=== PATIENT | male | born 1985 | race Caucasian/White ===

== ENCOUNTER → 2016-09-09 | Outpatient (CLI) | payer MEDICARE, OTHER, MEDICAID ==
[~2016-09-09] MED LIST: ALPRAZOLAM; AMBIEN 10MG10 MG PO; AMBIEN 5MG TABLE5 MG PO; AMBIEN10 MG PO; ATIVAN; BENADRYL25 M2 PO; BUSPAR10 MG PO; CELEXA; CELEXA 20MG20 MG/TAB PO; COGENTIN .0.5 MG/TAB PO; DESYREL 50MG50 MG PO; FLEXERIL 1010 MG/TAB PO; KLONOPIN0.5 MG PO; KLONOPIN1 MG PO; LATUDA40 MG PO; LATUDA80 MG PO; NIGHTTIME SLEEP25 M1 PO; NO HOME MEDICATIONS; NORCO 325 MG-51 TAB PO; REMERON30 MG PO; SERTRALINE; VOLTAREN 75 DR75 MG PO; ZIPRASIDONE; [UNRECOGNIZED DRUG - CODE]
== END ==
LOC: BHSO 12:56
DX: F25.0 Schizoaffective disorder, bipolar type (principal)

== ENCOUNTER 2016-10-02 10:33 | Emergency (ER) | payer MEDICARE, MEDICAID ==
[~2016-10-02] VITALS: Ht 185.4 cm; Wt 90.9 kg
[~2016-10-02 10:33] MED LIST changes: -AMBIEN 5MG TABLE5 MG PO; -CELEXA 20MG20 MG/TAB PO; -COGENTIN .0.5 MG/TAB PO; -FLEXERIL 1010 MG/TAB PO; -VOLTAREN 75 DR75 MG PO
[2016-10-02 10:40] VITALS: TEMP 97.6
[2016-10-02] MEDS ORDERED: CELEXA 20MG20 MG/TAB PO (10:45)
[2016-10-02] MEDS ORDERED: COGENTIN .0.5 MG/TAB PO (10:45)
[2016-10-02] MEDS ORDERED: AMBIEN 5MG TABLE5 MG PO (10:52)
[2016-10-02 11:37] LABS: BASO % 0.3 % (0.0-2.0); EOS % 0.4 % (0-4.0); GRAN # 7.5 (1.4-6.5); GRAN % 69.1 % (42.2-75.2); HEMOGLOBIN 15.1 g/dl (13.5-18.0); LYMPH # 2.1 (1.2-3.4); MEAN CELL VOLUME 91 fl (80.0-100.0); MEAN CORPUSCULAR HEMOGLOBIN 31 pg (27.0-31.0); MEAN CORPUSCULAR HGB CONC 34 g/dl (33.0-37.0); MONO # 1.2 (0.1-0.6); MONO % 10.8 % (1.7-9.3); PLATELET COUNT 411 K/mm3 (130-400); RED BLOOD COUNT 4.95 M/mm3 (4.20-5.60); REDCELL DISTRIBUTION WIDTH-CV 12.8 % (11.5-14.5); WHITE BLOOD COUNT 10.8 K/mm3 (4.8-10.8)
[2016-10-02 11:50] LABS: ADJUSTED CALCIUM 9.3 mg/dL (8.4-10.2); ALANINE AMINOTRANSFERASE 30 U/L (21-72); ALBUMIN 4.8 gm/dL (3.5-5.0); ALKALINE PHOSPHATASE 73 U/L (50-136); ANION GAP 13 mmol/L (7-16); BILIRUBIN,TOTAL 0.9 mg/dL (0.0-1.0); BLOOD UREA NITROGEN 14 mg/dL (9-20); CALCIUM 9.9 mg/dL (8.4-10.2); CARBON DIOXIDE 25 mmol/L (22-30); CHLORIDE 98 mmol/L (98-107); CREATININE, serum 0.85 mg/dL (0.66-1.25); GLUCOSE 100 mg/dL (74-106); POTASSIUM 4.3 mmol/L (3.4-5.0); SODIUM 135 mmol/L (137-145); TOTAL PROTEIN 8.3 gm/dL (6.4-8.2)
[2016-10-02 11:56] LABS: ACETAMINOPHEN < 10 ug/mL (10-30); SALICYLATE < 1.0 mg/dL
[2016-10-02 12:08] LABS: AMPHETAMINE URINE NEGATIVE; BARBITURATES URINE NEGATIVE; BENZODIAZEPINES URINE NEGATIVE; BUPRENORPHINE URINE NEGATIVE; METHADONE URINE NEGATIVE; OPIATES URINE NEGATIVE; OXYCODONE URINE NEGATIVE; PHENCYCLIDINE URINE NEGATIVE; PROPOXYPHENE URINE NEGATIVE; THC CANNABINOIDS URINE NEGATIVE
[2016-10-02 15:22] VITALS: BP 116/82; PULSE 82
== END 2016-10-02 15:23 | disposition home or self-care (01) ==
LOC: COL.ER 10:33
PROVIDERS: Nurse Practitioner
DX: T42.6X1A Poisoning by other antiepileptic and sedative-hypnotic drugs, accidental (unintentional), initial encounter (principal); Y92.009 Unspecified place in unspecified non-institutional (private) residence as the place of occurrence of the external cause; F25.9 Schizoaffective disorder, unspecified; F41.1 Generalized anxiety disorder; F90.9 Attention-deficit hyperactivity disorder, unspecified type

== ENCOUNTER → 2016-11-11 | Outpatient (CLI) | payer MEDICARE, MEDICAID ==
[~2016-11-11] MED LIST changes: +AMBIEN 5MG TABLE5 MG PO; +CELEXA 20MG20 MG/TAB PO; +COGENTIN .0.5 MG/TAB PO; +FLEXERIL 1010 MG/TAB PO; +VOLTAREN 75 DR75 MG PO
== END ==
LOC: BHSO 12:48
DX: F25.0 Schizoaffective disorder, bipolar type (principal)

== ENCOUNTER → 2017-01-06 | Outpatient (CLI) | payer MEDICARE, MEDICAID | LOC: BHSO 13:12 | DX: F25.0 Schizoaffective disorder, bipolar type (principal) ==

== ENCOUNTER 2017-02-15 08:33 | Emergency (ER) | payer MEDICARE, MEDICAID ==
[~2017-02-15] VITALS: Ht 185.4 cm; Wt 90.9 kg
[~2017-02-15 08:33] MED LIST changes: -FLEXERIL 1010 MG/TAB PO; -VOLTAREN 75 DR75 MG PO
[2017-02-15 08:35] VITALS: TEMP 98.6
[2017-02-15] MEDS ORDERED: FLEXERIL 1010 MG/TAB PO (08:59)
[2017-02-15] MEDS ORDERED: VOLTAREN 75 DR75 MG PO (08:59)
[2017-02-15 09:20] VITALS: BP 130/93; PULSE 76
== END 2017-02-15 09:25 | disposition home or self-care (01) ==
LOC: COL.ER 08:33
DX: S39.012A Strain of muscle, fascia and tendon of lower back, initial encounter (principal); X50.0XXA Overexertion from strenuous movement or load, initial encounter
CPT/HCPCS: J1885

== ENCOUNTER → 2017-03-10 | Outpatient (CLI) | payer MEDICARE, OTHER, MEDICAID ==
[~2017-03-10] MED LIST changes: +FLEXERIL 1010 MG/TAB PO; +VOLTAREN 75 DR75 MG PO
== END ==
LOC: BHSO 13:10
DX: F25.0 Schizoaffective disorder, bipolar type (principal)

== ENCOUNTER → 2017-07-03 | Outpatient (CLI) | payer MEDICARE, MEDICAID | LOC: BHSO 14:50 | DX: F25.0 Schizoaffective disorder, bipolar type (principal) ==

== ENCOUNTER 2017-10-18 15:58 | Emergency (ER) | payer MEDICARE ==
[~2017-10-18] VITALS: Ht 190.5 cm; Wt 118.2 kg
[2017-10-18 16:31] LABS: BASO # 0.1 (0.0-0.2); BASO % 0.6 % (0.0-2.0); EOS # 0.3 (0.0-0.7); EOS % 2.5 % (0-4.0); GRAN # 6.3 (1.4-6.5); GRAN % 56.4 % (42.2-75.2); HEMATOCRIT 45.2 % (42.0-52.0); HEMOGLOBIN 15.1 g/dl (13.5-18.0); LYMPH # 3.1 (1.2-3.4); LYMPH % 27.7 % (20.0-51.0); MEAN CELL VOLUME 91 fl (80.0-100.0); MEAN CORPUSCULAR HEMOGLOBIN 30 pg (27.0-31.0); MEAN CORPUSCULAR HGB CONC 33 g/dl (33.0-37.0); MEAN PLATELET VOLUME 9.1 fl (7.4-10.4); MONO # 1.4 (0.1-0.6); MONO % 12.3 % (1.7-9.3); PLATELET COUNT 504 K/mm3 (130-400); RED BLOOD COUNT 4.98 M/mm3 (4.20-5.60); REDCELL DISTRIBUTION WIDTH-CV 14.1 % (11.5-14.5)
[2017-10-18 16:40] LABS: ALANINE AMINOTRANSFERASE 44 U/L (21-72); ALBUMIN 4.5 gm/dL (3.5-5.0); ALKALINE PHOSPHATASE 94 U/L (50-136); ANION GAP 12 mmol/L (7-16); AST,SGOT 32 U/L (15-37); BILIRUBIN,TOTAL 0.4 mg/dL (0.0-1.0); BLOOD UREA NITROGEN 12 mg/dL (9-20); CALCIUM 9.6 mg/dL (8.4-10.2); CARBON DIOXIDE 26 mmol/L (22-30); CHLORIDE 103 mmol/L (98-107); CREATININE, serum 0.88 mg/dL (0.66-1.25); GLUCOSE 107 mg/dL (74-106); POTASSIUM 3.8 mmol/L (3.4-5.0); SODIUM 141 mmol/L (137-145); TOTAL PROTEIN 7.8 gm/dL (6.4-8.2)
[2017-10-18 16:41] LABS: ALCOHOL(ethanol),MEDICAL < 10 mg/dL
[2017-10-18 16:57] LABS: COLLECTION METHOD CLEAN CATCH
[2017-10-18 17:04] LABS: MUCOUS Present /lpf; PH 6 (5-8); SQUAMOUS EPITHELIAL None Seen /hpf; URINE APPEARANCE Clear; URINE BACTERIA None Seen /hpf; URINE BILIRUBIN Negative (NEGATIVE); URINE BLOOD Negative (NEGATIVE); URINE COLOR Yellow; URINE GLUCOSE Negative (NEGATIVE); URINE KETONE Negative (NEGATIVE); URINE LEUKOCYTE ESTERASE Negative (NEGATIVE); URINE NITRATE Negative (NEGATIVE); URINE PROTEIN(semi-quant) Negative (NEGATIVE); URINE RBC 0-2 /hpf; URINE UROBILINOGEN Negative (NEGATIVE)
[2017-10-18 17:13] LABS: TRICYCLIC ANTIDEPRESS URINE NEGATIVE
[2017-10-19 08:30] VITALS: BP 94/67; PULSE 90; TEMP 98.2
== END 2017-10-19 14:05 ==
LOC: COL.ER 15:58
PROVIDERS: Family Medicine
DX: F29 Unspecified psychosis not due to a substance or known physiological condition (principal); F31.9 Bipolar disorder, unspecified

== ENCOUNTER → 2017-11-06 | Outpatient (CLI) | payer MEDICARE | LOC: BHSO 12:59 | DX: F25.0 Schizoaffective disorder, bipolar type (principal) | CPT/HCPCS: G0463 ==

== ENCOUNTER → 2017-12-09 | Outpatient (CLI) | payer MEDICARE | LOC: BHSO 14:42 | DX: F25.0 Schizoaffective disorder, bipolar type (principal) | CPT/HCPCS: G0463 ==

== ENCOUNTER → 2018-03-09 | Outpatient (CLI) | payer MEDICARE | LOC: BHSO 14:36 | DX: F25.0 Schizoaffective disorder, bipolar type (principal) | CPT/HCPCS: G0463 ==

== ENCOUNTER 2018-04-01 16:41 | Emergency (ER) | payer OTHER, MEDICARE, MEDICAID ==
[~2018-04-01] VITALS: Ht 190.5 cm; Wt 90.9 kg
[2018-04-01 16:46] VITALS: BP 140/70; TEMP 99.7
[2018-04-01] MEDS ORDERED: BRINTELLIX10 (16:56)
[2018-04-01 17:31] LABS: COLLECTION METHOD CLEAN CATCH
[2018-04-01 17:35] LABS: BASO # 0.1 (0.0-0.2); BASO % 0.3 % (0.0-2.0); EOS # 0.2 (0.0-0.7); EOS % 1.4 % (0-4.0); GRAN % 71.6 % (42.2-75.2); HEMATOCRIT 44.7 % (42.0-52.0); HEMOGLOBIN 14.8 g/dl (13.5-18.0); LYMPH # 2.3 (1.2-3.4); LYMPH % 14.9 % (20.0-51.0); MEAN CELL VOLUME 91 fl (80.0-100.0); MEAN CORPUSCULAR HEMOGLOBIN 30 pg (27.0-31.0); MEAN CORPUSCULAR HGB CONC 33 g/dl (33.0-37.0); MEAN PLATELET VOLUME 9.1 fl (7.4-10.4); MONO # 1.7 (0.1-0.6); PLATELET COUNT 485 K/mm3 (130-400); RED BLOOD COUNT 4.92 M/mm3 (4.20-5.60); REDCELL DISTRIBUTION WIDTH-CV 15.8 % (11.5-14.5)
[2018-04-01 17:39] LABS: MUCOUS Present /lpf; PH 5 (5-8); SQUAMOUS EPITHELIAL None Seen /hpf; URINE APPEARANCE Clear; URINE BACTERIA None Seen /hpf; URINE BILIRUBIN Negative (NEGATIVE); URINE BLOOD Negative (NEGATIVE); URINE COLOR Yellow; URINE GLUCOSE Negative (NEGATIVE); URINE KETONE Negative (NEGATIVE); URINE LEUKOCYTE ESTERASE Negative (NEGATIVE); URINE NITRATE Negative (NEGATIVE); URINE PROTEIN(semi-quant) Negative (NEGATIVE); URINE RBC 0-2 /hpf; URINE UROBILINOGEN Negative (NEGATIVE)
[2018-04-01 17:44] LABS: ALBUMIN 4.1 gm/dL (3.5-5.0); BILIRUBIN,TOTAL 0.4 mg/dL (0.0-1.0); CALCIUM 8.9 mg/dL (8.4-10.2); CREATININE, serum 0.72 mg/dL (0.66-1.25); POTASSIUM 4.1 mmol/L (3.4-5.0); TOTAL PROTEIN 7.2 gm/dL (6.4-8.2)
[2018-04-01] MEDS ORDERED: NORCO 325 MG-51 TAB PO (18:35)
[2018-04-01 18:45] VITALS: PULSE 88
== END 2018-04-01 18:46 | disposition home or self-care (01) ==
LOC: COL.ER 16:41
PROVIDERS: Physician Assistant
DX: S30.1XXA Contusion of abdominal wall, initial encounter (principal); F32.9 Major depressive disorder, single episode, unspecified; F41.9 Anxiety disorder, unspecified; V43.52XA Car driver injured in collision with other type car in traffic accident, initial encounter
CPT/HCPCS: Q9967

== ENCOUNTER → 2018-06-08 | Outpatient (CLI) | payer MEDICARE, MEDICAID, OTHER ==
[~2018-06-08] MED LIST changes: +BRINTELLIX10
== END ==
LOC: BHSO 14:15
DX: F25.0 Schizoaffective disorder, bipolar type (principal)
CPT/HCPCS: G0463

== ENCOUNTER → 2018-09-08 | Outpatient (CLI) | payer MEDICARE, MEDICAID, OTHER | LOC: BHSO 14:36 | DX: F25.0 Schizoaffective disorder, bipolar type (principal) | CPT/HCPCS: G0463 ==

== ENCOUNTER 2018-10-26 15:10 | Emergency (ER) | payer MEDICARE, MEDICAID ==
[~2018-10-26] VITALS: Ht 190.5 cm; Wt 109.1 kg
[~2018-10-26 15:10] MED LIST changes: -[UNRECOGNIZED DRUG - CODE]; +[UNRECOGNIZED DRUG - CODE] PO
[2018-10-26 15:20] VITALS: BP 131/82; PULSE 96; TEMP 98.7
[2018-10-26 16:10] LABS: BASO % 0.4 % (0.0-2.0); EOS # 0.1 (0.0-0.7); EOS % 1.3 % (0-4.0); GRAN # 5.9 (1.4-6.5); GRAN % 66.3 % (42.2-75.2); HEMATOCRIT 45.9 % (42.0-52.0); HEMOGLOBIN 15.3 g/dl (13.5-18.0); LYMPH # 1.9 (1.2-3.4); LYMPH % 21.6 % (20.0-51.0); MEAN CELL VOLUME 93 fl (80.0-100.0); MEAN CORPUSCULAR HEMOGLOBIN 31 pg (27.0-31.0); MEAN CORPUSCULAR HGB CONC 33 g/dl (33.0-37.0); MEAN PLATELET VOLUME 9.1 fl (7.4-10.4); MONO # 0.9 (0.1-0.6); PLATELET COUNT 428 K/mm3 (130-400); RED BLOOD COUNT 4.95 M/mm3 (4.20-5.60); REDCELL DISTRIBUTION WIDTH-CV 14.6 % (11.5-14.5)
[2018-10-26 16:24] LABS: ALANINE AMINOTRANSFERASE 18 U/L (21-72); ALBUMIN 4.4 gm/dL (3.5-5.0); ALKALINE PHOSPHATASE 79 U/L (50-136); ANION GAP 6 mmol/L (7-16); AST,SGOT 33 U/L (15-37); BILIRUBIN,TOTAL 0.4 mg/dL (0.0-1.0); BLOOD UREA NITROGEN 9 mg/dL (9-20); CALCIUM 9.8 mg/dL (8.4-10.2); CARBON DIOXIDE 27 mmol/L (22-30); CHLORIDE 107 mmol/L (98-107); CREATININE, serum 0.72 (0.66-1.25); GLUCOSE 97 mg/dL (74-106); POTASSIUM 3.9 mmol/L (3.4-5.0); SODIUM 140 mmol/L (137-145); TOTAL PROTEIN 7.6 gm/dL (6.4-8.2)
[2018-10-26 16:27] LABS: ACETAMINOPHEN < 10 ug/mL (10-30); ALCOHOL(ethanol),MEDICAL < 10 mg/dL; SALICYLATE < 1.0 mg/dL
[2018-10-26 17:47] LABS: COLLECTION METHOD CLEAN CATCH
[2018-10-26 17:52] LABS: MUCOUS Present /lpf; PH 6 (5-8); SQUAMOUS EPITHELIAL None Seen /hpf; URINE APPEARANCE Clear; URINE BACTERIA None Seen /hpf; URINE BILIRUBIN Negative (NEGATIVE); URINE BLOOD Negative (NEGATIVE); URINE COLOR Yellow; URINE GLUCOSE Negative (NEGATIVE); URINE KETONE Negative (NEGATIVE); URINE LEUKOCYTE ESTERASE Negative (NEGATIVE); URINE NITRATE Negative (NEGATIVE); URINE PROTEIN(semi-quant) Negative (NEGATIVE); URINE RBC 0-2 /hpf; URINE UROBILINOGEN Negative (NEGATIVE)
[2018-10-26 18:03] LABS: TRICYCLIC ANTIDEPRESS URINE NEGATIVE
== END 2018-10-26 21:09 ==
LOC: COL.ER 15:10
PROVIDERS: Emergency Medicine
DX: F22 Delusional disorders (principal); F25.9 Schizoaffective disorder, unspecified; F41.9 Anxiety disorder, unspecified; F17.210 Nicotine dependence, cigarettes, uncomplicated; F12.90 Cannabis use, unspecified, uncomplicated

== ENCOUNTER → 2018-11-13 | Outpatient (CLI) | payer MEDICARE, MEDICAID | LOC: BHSO 13:56 | DX: F25.0 Schizoaffective disorder, bipolar type (principal) | CPT/HCPCS: G0463 ==

== ENCOUNTER → 2018-12-18 | Outpatient (CLI) | payer MEDICARE, MEDICAID ==
[~2018-12-18] MED LIST changes: +ATARAX50 MG PO; +BRINTELLIX20 PO; +LIDODERM 5% PATC1 EA TP; +ZYPREXA10 MG PO
== END ==
LOC: BHSO 14:40
DX: F25.0 Schizoaffective disorder, bipolar type (principal)
CPT/HCPCS: G0463

== ENCOUNTER 2018-12-20 09:49 | Emergency (ER) | payer MEDICARE, MEDICAID ==
[~2018-12-20] VITALS: Ht 190.5 cm; Wt 117.0 kg
[~2018-12-20 09:49] MED LIST changes: -ATARAX50 MG PO; -BRINTELLIX20 PO; -LIDODERM 5% PATC1 EA TP; -ZYPREXA10 MG PO
[2018-12-20 09:51] VITALS: TEMP 98.2
[2018-12-20] MEDS ORDERED: ZYPREXA10 MG PO (09:56)
[2018-12-20] MEDS ORDERED: BRINTELLIX20 PO (09:56)
[2018-12-20] MEDS ORDERED: ATARAX50 MG PO (09:57)
[2018-12-20] MEDS ORDERED: FLEXERIL 1010 MG/TAB PO (11:14)
[2018-12-20 11:47] VITALS: BP 123/88; PULSE 81
== END 2018-12-20 11:47 | disposition home or self-care (01) ==
LOC: COL.ER 09:49
DX: M54.5 Low back pain (principal); F41.9 Anxiety disorder, unspecified; F20.9 Schizophrenia, unspecified; F31.9 Bipolar disorder, unspecified; F17.210 Nicotine dependence, cigarettes, uncomplicated
CPT/HCPCS: J1885

== ENCOUNTER 2018-12-23 10:34 | Emergency (ER) | payer MEDICARE, MEDICAID ==
[~2018-12-23] VITALS: Ht 190.5 cm; Wt 113.6 kg
[~2018-12-23 10:34] MED LIST changes: +ATARAX50 MG PO; +BRINTELLIX20 PO; +ZYPREXA10 MG PO
[2018-12-23 10:39] VITALS: BP 164/63; PULSE 86; TEMP 98.7
[2018-12-23] MEDS ORDERED: LIDODERM 5% PATC1 EA TP (11:32)
== END 2018-12-23 11:43 | disposition home or self-care (01) ==
LOC: COL.ER 10:34
DX: M54.5 Low back pain (principal); F12.90 Cannabis use, unspecified, uncomplicated; F20.9 Schizophrenia, unspecified; F32.9 Major depressive disorder, single episode, unspecified; F17.210 Nicotine dependence, cigarettes, uncomplicated
CPT/HCPCS: J1885

== ENCOUNTER → 2019-03-19 | Outpatient (CLI) | payer MEDICARE, MEDICAID ==
[~2019-03-19] MED LIST changes: +LIDODERM 5% PATC1 EA TP
== END ==
LOC: BHSO 13:47
DX: F25.0 Schizoaffective disorder, bipolar type (principal)
CPT/HCPCS: G0463

== ENCOUNTER → 2019-06-17 | Outpatient (CLI) | payer MEDICARE, MEDICAID | LOC: BHSO 13:51 | DX: F25.0 Schizoaffective disorder, bipolar type (principal) | CPT/HCPCS: G0463 ==

== ENCOUNTER → 2019-09-15 | Outpatient (CLI) | payer MEDICARE, MEDICAID | LOC: BHSO 13:42 | DX: F25.0 Schizoaffective disorder, bipolar type (principal) | CPT/HCPCS: G0463 ==

== ENCOUNTER → 2019-12-16 | Outpatient (CLI) | payer MEDICARE, MEDICAID | LOC: BHSO 15:35 | DX: F25.9 Schizoaffective disorder, unspecified (principal) | CPT/HCPCS: G0463 ==

== ENCOUNTER → 2020-03-21 | Outpatient (CLI) | payer MEDICARE, MEDICAID | LOC: BHSO 15:45 | DX: F25.0 Schizoaffective disorder, bipolar type (principal) | CPT/HCPCS: G0463 ==